=== PATIENT | male | born 2000 | race African-American/Black ===

== ENCOUNTER 2023-06-25 12:00 | Emergency (ER) | payer SELFPAY | END 2023-06-25 12:30 | disposition home or self-care (01) | LOC: CSHERS 12:00 | DX: M72.2 Plantar fascial fibromatosis (principal) | CPT/HCPCS: 99283 ==

== ENCOUNTER 2024-07-07 09:19 | Emergency (ER) | payer MEDICAID ==
[2024-07-07] MEDS ORDERED: Ibuprofen 200 MG TAB ONE (09:44)
[2024-07-07 10:48] LABS: Bilirubin Neg (Negative); Blood, Urine Negative (Negative); Clarity Slightly Cloudy (Clear); Glucose, Urine (Dipstick) Normal (Negative); Ketone, Urine Negative (Negative); Leukocyte 25 (Negative); Nitrite Negative (Negative); Protein, Urine (Dipstick) 30 mg/dl (Neg-Trace); pH, Urine 6.5 (5.0-9.0)
[2024-07-07 11:19] LABS: CAUTI Indications for Culture Pelvic or flank pain; RBC/HPF 0-3 HPF (0-3); WBC/HPF Greater than 50 HPF (0-3)
[2024-07-07 11:20] LABS: Bacteria/HPF Rare-Few HPF (None Seen); Mucous/LPF 2+ LPF (<2+)
[2024-07-07 11:21] LABS: Urine Culture Reflex Yes Yes
[2024-07-07] MEDS ORDERED: cefTRIAXone (ROCEPHIN) 500 MG VIAL ONE (11:45)
[2024-07-07] MEDS ORDERED: Sterile Water 10 ML ONE (11:45)
[2024-07-08 05:28] LABS: Chlam.trachomatis by PCR,Urine Not Detected (NotDetected); GC N.gonorrhoeae PCR,UrineVOID Not Detected (NotDetected)
== END 2024-07-07 11:47 | disposition home or self-care (01) ==
LOC: CSHERS 09:19
DX: N45.1 Epididymitis (principal)
CPT/HCPCS: 76870; 81001; 87086; 87491; 87591; 93976; 96372; J0696